=== PATIENT | female | born 1965 | race Caucasian/White ===

== ENCOUNTER 2016-11-03 14:31 | Inpatient (IN) | payer OTHER ==
[~2016-11-03] VITALS: Ht 165.1 cm; Wt 97.3 kg
[2016-11-03] VITALS (8 sets, daily range): BP systolic 118–166; BP diastolic 65–95; PULSE 99–118; RESP 16–22; O2SAT 94–99
[~2016-11-03 14:31] MED LIST: Ketamine 10 mg/mL 20 mL Inj ONE; Propofol 10,000 mCg/mL 20 mL Inj ONE
[2016-11-03 15:37] LABS: BASOPHILS % (AUTO) 0.4 % (0-3); Mean Corpuscular Volume 103.3 fL (81-100)
[2016-11-03 15:39] LABS: EOSINOPHILS % (AUTO) 1.5 % (0-5); MONOCYTES % (AUTO) 3.6 % (4-12); Mean Corpuscular Hemoglobin 35.3 pg (27.0-35.0); NEUTROPHILS % (AUTO) 76.5 % (40-74); Platelet Count 88 bil/L (150-400)
--- NOTE | 2016-11-03 15:55 | ED.REPORT ---
HPI-GI Bleed Date of Service Nov 03, 2016 ED Provider: Tolu Coleman MD Pt is a 50 y/o female w/ a hx of upper GI bleed, Hep C, presenting to the ED c/ o 2 episodes of hematemesis onset 11:30 today. The patient has experienced 2 episodes of delfino red blood hematemesis today. She has a history of severe upper GI blood which required transfer to [facility]. She does use alcohol occasionally and was previously an alcoholic. She took 1 dose of Aleve yesterday for her neuropathy and normally takes Oxycodone for her fibromyalgia. Pt denies abdominal pain, diarrhea, CP, SOB. She has no history of esophageal varices. She does not take anticoagulants. Nursing Notes Stated Complaint: VOMITING BLOOD, POSSIBLE BLEEDING ULCER Chief Complaint: Female Abdominal Pain Nursing Notes Reviewed: Yes Allergies: Coded Allergies: No Known Allergies (Unverified , 11/03/16) General Time Seen by Provider: 15:57 Chief Complaint Chief Complaint: Vomiting blood Bleeding Severity: Moderate Hx Obtained From: Patient Arrived By: Walk-in Onset Occurred: 1 - 4 hours ago Symptom Duration: Since onset Progression Since Onset: Intermittent Severity: Current: No pain currently Severity: Maximum: No pain Recent Healthcare: Previous diagnosis Similar Sx Previous: Yes Past Medical History Past Medical History Anxiety Hernia Hep C Severe upper GI bleed requiring transfer to [facility] Fibromyalgia Peripheral neuropathy Past Surgical History x2 Hysterectomy Hernia repair x2 Family History Father - of pancreatic cancer Smoking History Current Every Day Smoker Social History Alcohol Use: 1-3 per day Drug Use: Denies drug use Other Social History: Ambulatory Status Independent Review of Systems Constitutional: Denies: Fever Respiratory: Denies: Non-productive cough, Shortness of breath Cardiovascular: Denies: Chest pain GI: Reports: Hematemesis, Nausea, Vomiting, Denies: Abdominal pain Complete sys rev & neg: except as marked. Physical Exam Initial Vital Signs Vital Signs (First) Date Time Temp Pulse Resp B/P Pulse Ox O2 Delivery O2 Flow Rate FiO2 11/03/16 14:36 36.5 110 16 150/92 99 Room Air Initial VS: Reviewed, Vital signs abnormal Head / Eyes: Atraumatic, Normocephalic, PERRL ENT: Mucous membranes moist, Conjunctiva normal, No scleral icterus Neck: Supple, Full range of motion Extremities: Vascular intact, Neuro intact, No swelling Skin: Warm, Dry, No cyanosis Neurologic: Alert, Oriented, Nonfocal Psychiatric: Mood/affect normal, Behavior normal, Normal thought content General/Constitutional: Awake, Alert, No acute distress, Cooperative, Not toxic appearing Respiratory / Chest: Breath sounds NL, Breath sounds = bilat, No respiratory distress, No rales, No rhonchi, No wheezing Cardiovascular: Regular rhythm, Heart sounds NL, No gallop, No murmurs, No rubs , Cap refill not delayed Heart Rate / Rhythm: Positive: Tachycardia Abdomen: Atraumatic, Soft, Non-tender, No guarding, No rebound, No distention, No palpable mass Rectum / Perineum: Atraumatic Rectal for Blood: Positive: Blood - occult heme +, Blood, grossly present Interpretation & Diagnostics Interpretation & Diagnostics: US abdomen with doppler: IMPRESSION: #1. Vascular abnormality is not appreciated in this patient with an enlarged liver and echo appearance consistent with fatty infiltration. No splenic enlargement is seen either. Dictated by: Virgilio Calzada M.D. on 11/03/2016 at 17:32 Approved by: Virgilio Calzada M.D. on 11/03/2016 at 17:38 Lab Results Interpretation Result Diagram: 11/03/16 1625 11/03/16 1524 Test 11/03/16 15:24 11/03/16 16:25 White Blood Count 7.2th/mm3 (3.8-10.1) Red Blood Count 3.29mil/mm3 (3.90-5.20) Mean Corpuscular Volume 103.3fL (81-100) Mean Corpuscular Hemoglobin 35.3pg (27.0-35.0) Mean Corpuscular Hemoglobin Concent 34.1% (32.0-37.0) Red Cell Distribution Width 12.5% (12.3-15.4) Platelet Count 88bil/L (150-400) Neutrophils (%) (Auto) 76.5% (40-74) Lymphocytes (%) (Auto) 17.7% (14-46) Monocytes (%) (Auto) 3.6% (4-12) Eosinophils (%) (Auto) 1.5% (0-5) Basophils (%) (Auto) 0.4% (0-3) Prothrombin Time 13.8sec (8.1-12.5) Prothromb Time International Ratio 1.28ratio Sodium Level 141mEq/L (134-144) Potassium Level 4.4mEq/L (3.5-5.2) Chloride Level 105mEq/L (97-108) Carbon Dioxide Level 27mmol/L (18-29) Blood Urea Nitrogen 19mg/dL (6-24) Creatinine 0.61mg/dL (0.57-1.00) Estimat Glomerular Filtration Rate 150mL/min (>59) Glucose Level 116mg/dL (60-99) Calcium Level 8.8mg/dL (8.5-10.1) Magnesium Level 1.5mg/dL (1.6-2.6) Total Bilirubin 1.6mg/dL (0.0-1.2) Aspartate Amino Transf (AST/SGOT) 74U/L (0-50) Alanine Aminotransferase (ALT/SGPT) 39U/L (0-32) Alkaline Phosphatase 128U/L (25-150) Total Protein 7.1g/dL (6.4-8.4) Albumin 3.3g/dL (3.4-5.0) Lipase 17U/L (13-60) Hold Wang Top Tube Received (Received) Alcohols < 10mg/dL (0-10) Hemoglobin 11.3g/dL (12.0-15.6) Hematocrit 32.4% (35.0-46.0) ECG Interpretation ECG Interpretation: Sinus tachycardia rate [address] or T changes Time: 16:25 Interpreted by: ED physician Normal ECG Interpretation: No acute ischemic changes X-Ray Chest Interpretation Chest Xray Interpretation: IMPRESSION: No acute cardiopulmonary disease process. Dictated by: Ingrid Priest MD, PhD on 11/03/2016 at 16:34 Approved by: Ingrid Priest MD, PhD on 11/03/2016 at 16:34 View: Portable, 1 view Interpretation / Wet Read by: Interpret - Radiologist Re-Eval/Medical Decision Med Decision/Clinical Course 50-year-old female history of alcohol abuse, hep C, history of GI bleed presenting with vomiting blood and BRBPR this afternoon. One episode of hematemesis here. Her stool is grossly bloody. Tachycardic to 120s. Blood pressure stable. Her hemoglobin was 11. Patient will be admitted for GI bleed. She was given 1 L normal saline. Type and screen for 2 units PRBCs that we will hold off given possible history of cirrhosis and stable hemoglobin concerning a possible varices. GI recommendations as above. Admitted to hospitalist, taken to endoscopy. Re-Evaluation/Progress : Time of Eval: 16:07 Re-Evaluation/Progress Note: Pt rechecked. Informed pt of need for admission. Pt understands and agrees with plan for admission. All questions addressed. Consultation #1: Referral / Consult Name: Nuzhat Choi MD Call Returned at: 16:05 Racing Secretary And Handicapper: Will see patient, Agrees with eval, Agrees with plan Note: Case discussed with GI. Agrees with plan for admit. Will consult. Recommends PPI, Octreotide, Rocephin, admit to PCC. If INR greater than 1.5 recommends FFP. Obtain abdominal doppler ultrasound. Consultation #2: Referral / Consult Name: Johnathan Noriega MD Consulted With: Hospitalist Call Returned at: 16:45 Racing Secretary And Handicapper: Will see patient, Agrees with eval, Agrees with plan, Accepts admit Counseled Regarding: Diagnosis, Lab results, Need for admission Discharge & Departure Impression: Primary Impression: GI bleed GI bleed type/associated pathology: unspecified gastrointestinal hemorrhage type Qualified Code: K92.2 - Gastrointestinal hemorrhage, unspecified Disposition: ADMITTED TO HOSPITAL Discharge Condition All VS Reviewed: Yes Condition: Stable Referrals: Erica Duggan (PCP) Crit Care Except Billable Proc Time Spent: 30-74 minutes Services Performed: Patient management by me, Time spent at bedside, Reviewing test results, Reviewing imaging, Discussing patient care, Documentation in record Scribe Attestation Portions of this note were transcribed by Guido Pena. I, Dr. Coleman personally performed the history, physical exam and medical decision-making; I reviewed and confirmed the accuracy of the information in the transcribed note. Signed by Karen Heck, 11/03/16 - [id number] copies to: Erica Duggan Ben M MD Nov 03, 2016 15:55 GUIDO PENA Nov 03, 2016 16:04
[2016-11-03 15:56] LABS: Magnesium 1.5 mg/dL (1.6-2.6)
[2016-11-03] MEDS ORDERED: 0.9% Sodium Chloride 1,000 ML IV ONE ×2 (16:04→18:10)
[2016-11-03] MEDS ORDERED: Pantoprazole 4 mg/mL 10 mL Inj IVPUSH ONE (16:05)
[2016-11-03] MEDS ORDERED: cefTRIAXone Inj 2,000 MG in Dextrose 5% Minibag Plus 50 ML IV ONE (16:05)
[2016-11-03] MEDS ORDERED: Octreotide Inj 500 MCG in 0.9% Sodium Chloride 100 ML IV ONE (16:05)
[2016-11-03] MEDS ORDERED: Pantoprazole Inj 80 MG, Pharmacy To Mix 1 EA in 0.9% Sodium Chloride 80 ML IV ONE ×2 (16:05)
[2016-11-03 16:27] LABS: INR 1.28 ratio
--- NOTE | 2016-11-03 16:36 | DRSVH ---
PROCEDURE: X-RAY CHEST ONE VIEW, PORTABLE ([id number]) INDICATIONS: GI bleed TECHNIQUE: One view of the chest was acquired. COMPARISON: [facility], , CHEST 1VW (PORTABLE), 07/30/2008, 8:35. FINDINGS: Surgical changes and devices: None. Lungs and pleura: No pleural effusions or pneumothorax. Lungs are clear. Mediastinum: Mediastinal contours appear normal. Heart size is normal. Bones and chest wall: No suspicious bony lesions. Overlying soft tissues appear unremarkable. IMPRESSION: No acute cardiopulmonary disease process. Dictated by: Ingrid Priest MD, PhD on 11/03/2016 at 16:34 Approved by: Ingrid Priest MD, PhD on 11/03/2016 at 16:34
[2016-11-03] MEDS ORDERED: Ondansetron 2 mg/mL 2 mL Inj IVPUSH PRN ×3 (16:50→18:15)
[2016-11-03] MEDS ORDERED: Alum-Mag Hydrox-Simeth 30 mL Suspension PO PRN ×2 (16:50→17:05)
[2016-11-03] MEDS ORDERED: EPINEPHrine 0.1 mg/mL 10 mL Syringe IV ONE (16:53)
[2016-11-03] MEDS ORDERED: MetoCLOpramide 5 mg/mL 2 mL Inj IVPUSH ONE (17:00)
[2016-11-03] MEDS ORDERED: 0.9% Sodium Chloride 1,000 ML IV SCH (17:02)
[2016-11-03] MEDS ORDERED: Polyethylene Glycol (PEG) 17 Gm Powder PO PRN (17:05)
[2016-11-03] MEDS ORDERED: Magnesium Sulf 2 Gm/50mL Water 2 GM in IV Premix 1 EACH IV ONE (17:15)
--- NOTE | 2016-11-03 17:22 | PCM.HPMED ---
Subjective Date of Service Nov 03, 2016 Primary Provider: Admitting Physician: Johnathan Noriega MD Primary Care Physician: Erica Duggan Attending Physician: Johnathan Noriega MD Chief Complaint: Hematemesis History of Present Illness: 50 year old female with hx of alcohol abuse and Hepatitis C reported cured, and hx of GI bleed second to alcohol abuse with PUD presents to the ED due to acute onset of hematemesis that began around 1300. Pt states that she awoke nauseated this morning and began vomiting blood x2 around 1300, and after presenting to the ED had additional episodes of hematemesis. She endorses light headedness and hematochezia associated with these episodes. She states that she is not using her home Celebrex or Mobic, however, she has been drinking 4 glasses of wine daily and using Aleve BID for the last 3 days. [facility] and prior to her treatment for HepC. She has no history of esophageal varices and her last GI bleed was due to PUD in August 2014. In the ED the patient was tachycardic. Hgb was 11.3. LFT's were elevated suggestive of alcohol use, with hypomagnesemia. GI was consulted and took the patient to endoscopy for EGD. Review of Systems: Complete review of systems reviewed; pertinent positives and negatives per HPI; all other systems reviewed and are negative. Allergies Coded Allergies: No Known Allergies (Unverified , 11/03/16) Home Medications Omeprazole 20mg Oxycodone 5-325mg Aleve prn (2 pills daily a couple days/wk) PMH Anxiety Hernia Hep C Severe upper GI bleed requiring transfer to [facility] Fibromyalgia Peripheral neuropathy Surgical History x2 Hysterectomy Hernia repair x2 Family History Father - of pancreatic cancer Social History Hx Alcohol Use: Yes Hx Substance Use: No Smoking Status: Current Every Day Smoker Living Arrangement: with Family Exam Vital Signs Vital Sign - Last Date Time Temp Pulse Resp B/P Pulse Ox O2 Delivery O2 Flow Rate FiO2 11/03/16 15:59 118 20 141/65 97 Room Air 11/03/16 14:36 36.5 Exam Patient examined after Endoscopy Gen: NAD; resting comfortably HEENT: PERRLA, EOMI, no blood in oral cavity Cardio: RRR; 3/6 systolic murmur; no rubs or gallops Resp: CTA bilaterally with course breath sounds in the RLL Abd: Non-tender, non-distended, soft, positive bowel sounds Ext: Mild non-pitting edema, strength intact throughout Neuro: sensation and CN 2-12 intact throughout Psych: appropriate mood and affect Skin: no rashes Lab and Diagnostics Result Diagram: 11/03/16 1625 11/03/16 1524 X-Rays, CTs and MRIs Chest X-ray IMPRESSION: No acute cardiopulmonary disease process. Dictated by: Ingrid Priest MD, PhD on 11/03/2016 at 16:34 Additional Diagnostics: RUQ Ultrasound #1. Vascular abnormality is not appreciated in this patient with an enlarged liver and echo appearance consistent with fatty infiltration. No splenic enlargement is seen either. Dictated by: Virgilio Calzada M.D. on 11/03/2016 at 17:32 Assessment & Plan 50 year old female with hx of alcohol abuse and Hepatitis C reported cured, and hx of GI bleed second to alcohol abuse with PUD presents to the ED due to acute onset of hematemesis that began around 1300. Acute blood loss anemia second to presumed PUD with macrocytosis: present on admission; ongoing -3 episodes of delfino hematemesis and questionable hematochezia -Hgb appears stable and pt taken to EGD by GI from the ED -Octreotide and Protonix drips running; stopped octreotide affect EGD -Type and cross with transfusion < 7 -Abx given in ED. Will consider pending results of EGD -Pt received 1L NS -Will place on maintenance fluids post-procedure -Trend H/H q8 -Start on clear liquid tomorrow if H/H is stable -Change to Protonix 40mg BID IV tomorrow and d/c drip if stable Possible Cirrhosis second to alcohol abuse and hx hepatitis C; present on admission; ongoing -pt reportedly has not been drinking; patient also taking tylenol and oxycodone at home -PT 1.28, Bili 1.6 and thrombocytopenic -MELD: 11 ; Discriminate function: 7.6 -US RUQ -Follow LFT's, PT, and Bili -Avoid acetaminophen Hypomagnesemia; present on admission; ongoing -replace Fibromyalgia/peripheral neuropathy: present on admission; ongoing - Continue Oxycodone - Hold cyclobenzaprine - Continue pramipexole - Morphine 1-2 Q4 hrs for break through Anxiety: present on exam; stable -Ativan 0.5 Q6 PRN for anxiety Dispo: Pt is being admitted to the PCC on inpatient status due to severity of presentation, duration of treatment, and risk of adverse events Pain Evaluation: Adequate Pain Control VTE Prophylaxis Indicated: Contraindicated Resuscitation Status: CPR: Attempt Resuscitation Attending Statement The patient was seen and examined together with Dr. Rai on 11/03/2016 and I agree with the history, exam and plan as outlined in the note above. . Aleksandar Rai DO Nov 03, 2016 17:22 Johnathan Noriega MD Nov 04, 2016 07:16
--- NOTE | 2016-11-03 17:40 | DRSVH ---
PROCEDURE: US ABDOMEN DOPPLER, LIMITED INDICATIONS: GI bleed, history of cirrhosis or technologist TECHNIQUE: Real-time scanning was performed of the abdominal and retroperitoneal organs, with image documentatio n. Color and pulse Doppler interrogation was also performed of the hepatic and splenic vessels, or o f the lesion of interest. COMPARISON: None. FINDINGS: Liver: There is some increased echogenicity of the liver. It is 19 cm in length consistent with enlar ged liver. Doppler: Main portal vein is patent, with luminal diameter of 10 mm (normal of 13-16 mm). On pulse Doppler interrogation, portal vein flow direction is hepatopetal. Hepatic artery Doppler waveforms d emonstrate normal systolic upstrokes. Hepatic veins are all patent, with expected triphasic Doppler waveforms. Gallbladder: Not evaluated Biliary ducts: No biliary tree dilatation is seen. Spleen: Spleen is normal in size and homogeneous in echotexture. Maximum dimension is approximately 12 cm. Splenic artery and vein are grossly normal. Pancreas: Is not visualized. Kidneys: Are not visualized. Aorta: Is not visualized. Iliacs: Is not visualized. IVC: Is not visualized. Miscellaneous: Generous amount of bowel gas is present throughout the abdomen. IMPRESSION: #1. Vascular abnormality is not appreciated in this patient with an enlarged liver and echo appearanc e consistent with fatty infiltration. No splenic enlargement is seen either. Dictated by: Virgilio Calzada M.D. on 11/03/2016 at 17:32 Approved by: Virgilio Calzada M.D. on 11/03/2016 at 17:38
[2016-11-03] MEDS ORDERED: Lactated Ringer's 1,000 ML IV ONE (17:56)
[2016-11-03] MEDS ORDERED: Lactated Ringer's 1,000 ML IV SCH (18:14)
[2016-11-03] MEDS ORDERED: Lactated Ringer's 500 ML IV PRN (18:14)
--- NOTE | 2016-11-03 18:14 | PCM.HPANE ---
Patient Data Surgeon Admitting Provider:Johnathan Noriega MD Attending Provider:Johnathan Noriega MD Primary Care Physician:Erica Duggan Other Provider: Reason for Visit Gi Bleed Ht/WT & BMI Height (Feet): 5 Height (Inches): 5 Weight (Kilograms): 97.8 Body Mass Index 36 Allergies Coded Allergies: No Known Allergies (Unverified , 11/03/16) Past Anesthesia History Anesthesia History: Denies:: Abnormal Airway, Difficult Intubation Diabetes History Hx Diabetes?: No MRSA MRSA: No Medications Hypertension Medication: No Home Meds Incl Beta Live: No History History of ENT Problems?: No HEENT History: Denies:: Abnormal Airway Difficult Intubation Denture Type: None Teeth Condition: Within Normal Limits Hx of Heart Problems?: No Cardiovascular History: Denies:: AICD Abdominal Aortic Aneurism Atrial Fibrillation Cardiac Surgery Chest Pain Congestive Heart Failure Coronary Artery Disease Edema Heart Murmur Hypertension Irregular Heartbeat Pacemaker Peripheral Vascular Rheumatic Fever Thrombophlebitis Valvular Heart Disease Hx of Respiratory Problem?: Yes Respiratory History: Positive for:: Asthma Denies:: Tuberculosis Hx Neurologic Problems?: Yes (alcoholism) Neurological History: Denies:: Alzheimer's Disease CVA Dementia Dizziness Headaches Multiple Sclerosis Parkinson's Disease Peripheral Neuropathy Seizures TIA Hx of GI Problems?: Yes Gastrointestinal History: Positive for:: Cirrhosis Gastrointestinal Bleeding Hx of Problems?: No Genitourinary History: Denies:: HX of Hemodialysis Kidney Stones Urinary Tract Infection Female Hx: Denies:: Currently Endometriosis Pelvic Inflammatory Problems with Breasts? Skin History: Denies:: History Skin Disorders? Pressure Ulcers Hx Musculoskeletal Problems?: No Musculoskeletal History: Denies:: Back Injury Degenerative Joint Fibromyalgia Joint Replacement Musculoskeletal Trauma Myasthenia Gravis Osteoarthritis Rheumatoid Arthritis Systemic Lupus Hx of Psycho/Social Problems?: Yes Hx Surgeries?: Yes (hysterectomy, 2 hernia surgeries, 2 c sections) Hx Diabetes: No Hx Alcohol Use: YesHx Substance Use: No Smoking Status: Current Every Day Smoker Have You Smoked inLast 12 mo: Yes Stop/Bang Treated for Sleep Apnea?: No Do You Have a CPAP Machine?: No Risk Assessment Category Category 1A: Patient has history of documented sleep apnea, and HAS NOT received any narcotic, sedative or anesthesia administration during this stay. Category 1B: Patient has history of documented sleep apnea, and HAS received any narcotic , sedative or anesthesia administration during this stay Category 2: Patient has SUSPECTED Obstructive Sleep Apnea, and HAS received any narcotic , sedative or anesthesia administration during this stay. Category 3: Patient has SUSPECTED Obstructive Sleep Apnea and HAS NOT received narcotic, sedative or anesthesia administration during this stay. Category 4: Outpatient in Procedural Areas with known sleep apnea or who screen positive for High Risk via the STOP/BANG questionnaire. Exam Exam Vital Signs Vital Signs Date Time Temp Pulse Resp B/P Pulse Ox O2 Delivery O2 Flow Rate FiO2 11/03/16 17:25 107 22 138/79 97 Room Air 11/03/16 15:59 118 20 141/65 97 Room Air 11/03/16 14:36 36.5 110 16 150/92 99 Room Air General Appearance: Alert, Oriented X3, Cooperative, No Acute Distress HEENT/AIRWAY: MP 2 Lungs: Clear to Auscultation, Normal Air Movement Heart: Exam Unremarkable, Regular Rate/Rhythm, No Murmurs/Rubs/Gallops Meds/Labs/Diagnostics Admission Meds Current Medications Pantoprazole (Protonix Inj) 80 mg STAT ONCE IVPUSH Last administered on 16:48; Start 11/03/16 at 16:05; Stop 11/03/16 at 16:09; Status DC Octreotide Acetate 50 mcg 50 mcg ONCE ONCE IVPUSH Last administered on 16:54; Start 11/03/16 at 16:05; Stop 11/03/16 at 16:10; Status DC Sodium Chloride (Normal Saline) 1,000 ml @ 0 mls/hr Q0M ONCE IV Last administered on 11/03/16 16:53; Start 11/03/16 at 16:04; Stop 11/03/16 at 16:09 ; Status DC Metoclopramide HCl 10 mg 10 mg ONCE ONCE IVPUSH Last administered on 17:10; Start 11/03/16 at 17:00; Stop 11/03/16 at 17:01; Status DC Lactated Ringer's (Lr) 1,000 ml @ ud STK-MED ONCE IV Last administered on 11/03 17:56; Start 11/03/16 at 17:56; Stop 11/03/16 at 17:57; Status DC Labs Test 11/03/16 15:24 11/03/16 16:25 White Blood Count 7.2th/mm3 (3.8-10.1) Red Blood Count 3.29mil/mm3 (3.90-5.20) Mean Corpuscular Volume 103.3fL (81-100) Mean Corpuscular Hemoglobin 35.3pg (27.0-35.0) Mean Corpuscular Hemoglobin Concent 34.1% (32.0-37.0) Red Cell Distribution Width 12.5% (12.3-15.4) Platelet Count 88bil/L (150-400) Neutrophils (%) (Auto) 76.5% (40-74) Lymphocytes (%) (Auto) 17.7% (14-46) Monocytes (%) (Auto) 3.6% (4-12) Eosinophils (%) (Auto) 1.5% (0-5) Basophils (%) (Auto) 0.4% (0-3) Prothrombin Time 13.8sec (8.1-12.5) Prothromb Time International Ratio 1.28ratio Sodium Level 141mEq/L (134-144) Potassium Level 4.4mEq/L (3.5-5.2) Chloride Level 105mEq/L (97-108) Carbon Dioxide Level 27mmol/L (18-29) Blood Urea Nitrogen 19mg/dL (6-24) Creatinine 0.61mg/dL (0.57-1.00) Estimat Glomerular Filtration Rate 150mL/min (>59) Glucose Level 116mg/dL (60-99) Calcium Level 8.8mg/dL (8.5-10.1) Magnesium Level 1.5mg/dL (1.6-2.6) Total Bilirubin 1.6mg/dL (0.0-1.2) Aspartate Amino Transf (AST/SGOT) 74U/L (0-50) Alanine Aminotransferase (ALT/SGPT) 39U/L (0-32) Alkaline Phosphatase 128U/L (25-150) Total Protein 7.1g/dL (6.4-8.4) Albumin 3.3g/dL (3.4-5.0) Lipase 17U/L (13-60) Hold Wang Top Tube Received (Received) Alcohols < 10mg/dL (0-10) Hemoglobin 11.3g/dL (12.0-15.6) Hematocrit 32.4% (35.0-46.0) Plan Impression Patient chart reviewed, patient interviewed and anesthestic plan with risks, benefits, and alternatives discussed, and informed consent obtained. ASA Physical Status: ASA3 Severe Disease (cirrhosis, gi bleed) Anesthetic Plan: MAC Bene/Risks/Altern/Consents: Yes HP Complete Prior to Induction: Yes Rik May MD Nov 03, 2016 18:14
[2016-11-03] MEDS ORDERED: Dexamethasone 4 mg/mL Inj IVPUSH PRN (18:15)
[2016-11-03] MEDS ORDERED: Phenylephrine 10,000 mCg/mL Inj IVPUSH PRN (18:15)
[2016-11-03] MEDS ORDERED: MetoCLOpramide 5 mg/mL 2 mL Inj IVPUSH PRN (18:15)
[2016-11-03] MEDS ORDERED: EPHEDrine Sulfate 50 mg/mL Inj IVPUSH PRN (18:15)
--- NOTE | 2016-11-03 18:16 | PCM.ANEP1 ---
Post Anesthesia PACU Phase 1 Assessment Vital Signs Vital Signs Date Time Temp Pulse Resp B/P Pulse Ox O2 Delivery O2 Flow Rate FiO2 11/03/16 17:25 107 22 138/79 97 Room Air 11/03/16 15:59 118 20 141/65 97 Room Air 11/03/16 14:36 36.5 110 16 150/92 99 Room Air Anesthetic Administered: MAC Level of Alertness: Sleepy, easy to arouse VALIENTE's with Equal Strength: Yes Pain: No Nausea or Vomiting: No CV Function & Hydration Stable: Yes Airway Device: none Oxygen Delivery: Nasal Cannula Lungs: Clear to Auscultation, Normal Air Movement Dermatome Level: Full Sensation PACU Phase 2 Assessment Complications: No Follow up Care: No Patient Instructions Provided: N/A Rik May MD Nov 03, 2016 18:16
--- NOTE | 2016-11-03 18:36 | NUR ---
Transfer Pt arrived on PCC room # 2009 at 1830. Report from SANTIAGO Reddy in ENDO. Pt is alert and oriented, groggy from propofol given in ENDO. Tele place. Vitals stable. RA at 99% No c/o pain. NPO, NS started. at bedside. Waiting on orders to be placed. No admit completed r/t change of shift.
[2016-11-03] MEDS: 0.9% Sodium Chloride 1,000 ML IV SCH (19:25)
[2016-11-03] MEDS ORDERED: CELE50CA PO (19:55)
[2016-11-03] MEDS ORDERED: Octreotide Inj 500 MCG in 0.9% Sodium Chloride 100 ML IV SCH (20:00)
[2016-11-03] MEDS ORDERED: cefTRIAXone 2,000 mg/D5W 50 mL IV Minibag Plus IV ONE ×2 (20:10)
[2016-11-03] MEDS ORDERED: Pantoprazole Inj 80 MG in 0.9% Sodium Chloride 80 ML IV SCH (20:10)
[2016-11-03 20:33] LABS: APPEARANCE,URINE HAZY (CLEAR,HAZY); COLOR,URINE YELLOW (YELLOW); OCCULT BLOOD,URINE TRACE (NEGATIVE); PH,URINE 7.5 (5.0-8.0); UROBILINOGEN,URINE NORMAL (NORMAL)
[2016-11-03] MEDS: Pantoprazole Inj 80 MG, Pharmacy To Mix 1 EA in 0.9% Sodium Chloride 80 ML IV SCH ×2 (20:38)
--- NOTE | 2016-11-03 21:08 | CONS ---
[address] [address] CONSULTATION REPORT PATIENT: KEVIN PHILLIPS : 1965 MR#: [id number] ADMIT: 11/03/2016 JOB ID: [id number] DATE OF SERVICE: 11/03/2016 REASON FOR CONSULTATION: Hematemesis. PHYSICIAN REQUESTING CONSULTATION: Dr. Tolu Coleman. HISTORY OF PRESENTING ILLNESS: The patient is a 50-year-old woman who has a history of alcohol abuse dating back since her 20s and episodically has been abstinent. However, more recently, she has been drinking approximately 4-5 glasses of wine daily. She has also been taking ibuprofen and Excedrin for chronic lower back pain. She has a history of an upper GI bleed for which she underwent upper endoscopy approximately two years ago at [facility] and at that time was found to have peptic ulcer disease, and she was advised not to take any further NSAIDs. Also, at that time, the patient was diagnosed with chronic hepatitis C and subsequently underwent treatment at the [facility] and states that she has been cured of hepatitis C. She does have a history of cirrhosis. She reports that she was in her usual state of health up until earlier today when she started feeling nausea after returning from the store. This was then followed by hematemesis, two episodes, one at home and one in the emergency department and also reports of bright red blood per rectum. She denies any abdominal pain. She denies any fevers, chills, sweats. Upon arrival to the emergency department, she was slightly tachycardic at 110, however, the remainder her vital signs were stable. INITIAL LABS: Her initial hemoglobin was 11.6, and then repeat approximately an hour later was stable at 11.3 with a hematocrit of 32.4. Her LFTs did show a total bili of 1.6, AST of 74, ALT of 39, alkaline phosphatase of 128, albumin of 3.3. She did have an ultrasound of the abdomen done with Doppler which showed that the liver was enlarged and had increased in echogenicity. The spleen appeared unremarkable. No obvious ascites appreciated. No evidence of portal vein thrombosis. PAST MEDICAL HISTORY: Significant for chronic hepatitis C which has been treated, history of peptic ulcer disease, fibromyalgia, anxiety, alcohol abuse and peripheral neuropathy. PAST SURGICAL HISTORY: Includes , hysterectomy and two hernia repairs. FAMILY HISTORY: Significant for pancreatic cancer in her father. SOCIAL HISTORY: She does drink alcohol daily, and she does smoke cigarettes daily. She lives with her . HOME MEDICATIONS: Include omeprazole 20 mg, oxycodone 5/325, Aleve two tablets daily as well as Excedrin. ALLERGIES: She has no known drug allergies. REVIEW OF SYSTEMS: Her 10 point review of systems is otherwise unremarkable. HOSPITAL MEDICATIONS: Hospital medications include ceftriaxone, octreotide, pantoprazole, Ativan p.r.n., morphine p.r.n., Maalox p.r.n., senna p.r.n., MiraLAX p.r.n. and acetaminophen p.r.n. PHYSICAL EXAM: She is afebrile, her pulse was 118, her blood pressure is 141/65, respiratory rate is 20, O2 saturation is 97% on room air. Generally, she is a cdjxwy-rseo-[id number] woman who is in no apparent distress who is oriented to person, place, and time and answers questions appropriately. HEENT: No pallor. No icterus. Oropharynx is clear. Chest exam: Clear to auscultation bilaterally. Cardiovascular exam: S1, S2 heard. Abdomen: Obese, soft, nontender, nondistended, did not appreciate any hepatosplenomegaly. Extremities with trace edema. LABORATORY DATA: Her laboratory data includes a white blood cell count of 7.2, hemoglobin of 11.3, hematocrit 32.4, her platelet count was 88, her neutrophil count was 76.5, MCV was 103.3, PT was 13.8, INR is 1.28. Her BMP was normal except for glucose which was mildly elevated at 116. LFTs as described above. Lipase was 17. Alcohol level was less than 10. Hepatitis serologies have been sent and are pending. Ultrasound of the abdomen as described above. ASSESSMENT AND PLAN: 1. A 50-year-old woman with a history of chronic hepatitis C that has been treated and alcohol abuse who has a known cirrhosis presenting with hematemesis and rectal bleeding. I suspect we may be dealing with variceal bleeding versus peptic ulcer disease and therefore had recommended that she be started on octreotide as well as a Protonix drip. In addition, with her history of cirrhosis, agree with empiric antibiotics that have been started. I would recommend continuing to follow her H and H closely and transfuse blood products as needed. 2. She has two large-bore IVs and she is typed and screened. Would recommend keeping her hemoglobin between 8-10 as to not increase portal pressures. Will plan for urgent endoscopy. Risks and benefits of endoscopy were discussed with the patient and she is agreeable to proceed. 3. Alcohol abuse. Would monitor for withdrawal. 4. Elevated liver function test. I suspect this is secondary to alcohol abuse. Would continue to monitor LFTs and PT/INR. 5. Avoid any hepatotoxic medications. Additionally, would try to minimize narcotic use and sedatives if able. 6. Thrombocytopenia. I suspect this is likely related to portal hypertension. If she should have bleeding and her platelet count should drop below 50, would then recommend transfusing platelets if needed. Will plan for urgent endoscopy. Thank you for allowing me to participate in this patient's care. If you have any further questions, please do no hesitate to contact me.
[2016-11-03] MEDS ORDERED: OXYC5SOL11 PO (21:14)
[2016-11-03] MEDS ORDERED: ALPR0.5T8 PO (21:14)
[2016-11-03] MEDS ORDERED: CYCL5TAB PO (21:21)
[2016-11-03] MEDS ORDERED: PRAM0.252 PO (21:21)
[2016-11-03] MEDS ORDERED: ZLP5T PO (21:21)
[2016-11-03] MEDS ORDERED: OXYC5TAB72 PO (21:21)
[2016-11-03] MEDS ORDERED: Cyclobenzaprine PO (21:23)
--- NOTE | 2016-11-03 22:30 | ENDO ---
[address] [address] ENDOSCOPY PROCEDURE PATIENT: KEVIN PHILLIPS : 1965 MR#: [id number] ADMIT: 11/03/2016 JOB ID: [id number] DATE OF SERVICE: 11/03/2016 PROCEDURE: Esophagogastroduodenoscopy. INDICATION: Hematemesis. Please see Dr. May's anesthesia report for details regarding ASA classification, Mallampati score, and medications. INSTRUMENT USED: GIF H 180 J. PROCEDURE DETAILS: After informed consent was obtained, the patient was brought into the GI suite, where she was placed on oxygen via nasal cannula and monitored with continuous pulse oximeter, telemetry, and blood pressure monitoring. A time-out was performed and then she was placed in a left lateral decubitus position and medications were administered for sedation. A bite block was placed. The standard EGD scope was inserted through the bite block and advanced under direct visualization to the second portion of the duodenum without difficulty. FINDINGS: 1. There was old blood seen in the examined portions of the duodenum which we were able to clear with irrigation and suctioning. Following irrigation, we saw no accumulation of any fresh blood or old blood. The colonoscope was then withdrawn back into the antrum. At the 9 o'clock position in the antrum, there was a clean-based 2-3 mm ulcer. This was not actively bleeding. 2. Retroflexed views in the gastric body revealed old blood in the body of the stomach, fundus. At the cardia, there was an adherent clot. Next, we irrigated the body and antrum of the stomach and were able to clear the majority of the old blood. There was no accumulation of fresh blood. 3. Next, we directed our attention to the adherent clot at the cardia. We were able to visualize this more clearly as we withdrew the scope into the esophagus. Just below the GE junction at 37 cm, there was an adherent clot. The tissue surrounding the clot also appeared to be quite denuded and slightly ulcerated. I suctioned the clot off. Following that, there was oozing of blood. At this point, I elected to use the injection needle and inject 3 mL of epinephrine into the ulcerated area and bleeding area. At that time. 4. I then elected to place two hemoclips to approximate the ulcerated area. Also, within the ulcerated area there appeared to be what looked like a visible vessel that was approximated when the ulcerated area was approximated as well. Following this, copious amounts of irrigation was performed. No further bleeding was seen. The EGD scope was then withdrawn above the GE junction where we were able to examine the esophagus. There was evidence of small esophageal varices that flattened out with insufflation. There was no stigmata of recent bleed from the three columns of small varices that we visualized. The remainder of the esophagus appeared otherwise unremarkable. IMPRESSION: Ulcerated mucosa with visible vessel just below the gastroesophageal junction at 37 cm. The area was treated with a combination of epinephrine and hemoclip placement. RECOMMENDATION: 1. Continue n.p.o. 2. Continue PPI drip. 3. Discontinue octreotide drip. 4. Continue to follow H and H closely. Should the patient have any active bleeding, please contact me directly. COMPLICATIONS: None. ESTIMATED BLOOD LOSS: Less than 10 mL.
[2016-11-04] VITALS (7 sets, daily range): BP systolic 105–158; BP diastolic 46–78; PULSE 77–98; RESP 16–22; O2SAT 96–99
[2016-11-04 03:04] LABS: BASOPHILS % (AUTO) 0.4 % (0-3); EOSINOPHILS % (AUTO) 2.8 % (0-5); Mean Corpuscular Hemoglobin 35.6 pg (27.0-35.0); Mean Corpuscular Volume 104.9 fL (81-100); NEUTROPHILS % (AUTO) 54.5 % (40-74); Platelet Count 62 bil/L (150-400)
[2016-11-04 03:10] LABS: Hepatitis A Antibody IgM Negative (Negative); Hepatitis B Core Antibody IgM Negative (Negative)
[2016-11-04 04:21] LABS: Magnesium 1.7 mg/dL (1.6-2.6); Phosphorus 2.7 mg/dL (2.5-4.9)
[2016-11-04] MEDS: 0.9% Sodium Chloride 1,000 ML IV SCH (04:23)
[2016-11-04] MEDS: Pantoprazole Inj 80 MG, Pharmacy To Mix 1 EA in 0.9% Sodium Chloride 80 ML IV SCH ×4 (05:21→16:07)
--- NOTE | 2016-11-04 06:28 | NUR ---
GI: Pt denies any nausea vomiting. NS and Protonix gtt infusing as ordered. Pt remains NPO. Pt did have one moderate sized maroon/ brown, foul smelling stool. H/H stable. PRN Morphine given got leg pain/ cramping with intermittent relief. PRN Ativan given for anxiety with good results. pt able to sleep. care ongoing,.
[2016-11-04] MEDS ORDERED: CYCL5TAB PO (08:07)
[2016-11-04] MEDS: Lactated Ringer's 1,000 ML IV SCH ×2 (08:20→17:32)
[2016-11-04] MEDS ORDERED: FUR20 PO (08:40)
[2016-11-04] MEDS ORDERED: MULT1CAP33 PO (08:40)
[2016-11-04] MEDS ORDERED: OXYC10TA8 PO (08:40)
[2016-11-04] MEDS ORDERED: PRAM0.256 PO (08:40)
[2016-11-04] MEDS ORDERED: CELE-67 PO (08:40)
[2016-11-04] MEDS ORDERED: ZOLP5TAB6 PO (08:40)
[2016-11-04] MEDS ORDERED: CALC600T12 PO (08:43)
[2016-11-04] MEDS ORDERED: CYAN500 PO (08:43)
[2016-11-04] MEDS ORDERED: CHOL10008 PO (08:43)
[2016-11-04] MEDS ORDERED: MAGN250T29 PO (08:43)
--- NOTE | 2016-11-04 08:49 | NUR ---
Med Rec Completed and corrected Med Rec with patient by using Ext Med Hx. Paged Hospitalist on R2 to notify him that Med Rec has been completed.
--- NOTE | 2016-11-04 10:20 | NUR ---
Pain/anxiety Patient stated having leg cramps and lower extremity pain 4-5/10. medicated with morphine 2mg IV x1 with moderate pain relive. Patient was pacing in room around her bed and appeared anxious- ativan 0.5mg IV x1 was given-patient was able to relax and to rest. Consulted with attending resident regarding resuming home medications continue assessment.
[2016-11-04] MEDS ORDERED: OXYCODONE 20 MG PO SCH (13:50)
--- NOTE | 2016-11-04 17:03 | PCM.PNMED ---
Subjective Date of Service Nov 04, 2016 Subjective Pt doing well this am. Up and walking about. No complaints. EGD yesterday revealed ulcer under the cardiac sphincter that was injected and cauterized. Exam Vital Signs Vital Sign - Last Date Time Temp Pulse Resp B/P Pulse Ox O2 Delivery O2 Flow Rate FiO2 11/04/16 16:08 37.0 85 19 105/46 96 Room Air Intake and Output 11/03/16 11/03/16 11/04/16 Cumulative From/Thru 14:59 22:59 06:59 11/03/16 14:36 - 11/04/16 06:00 Intake Total 1899 ml 1260 ml 3159 ml Output Total 1100 ml 1100 ml Balance 1899 ml 160 ml 2059 ml Intake Oral 0 ml 0 ml IV Total 1899 ml 1260 ml 3159 ml Output Urine Total 600 ml 600 ml Urine/Stool Mix 500 ml 500 ml # Voids 2 2 Exam Gen: NAD; resting comfortably Cardio: RRR; 3/6 systolic murmur; no rubs or gallops Resp: CTA bilaterally Abd: Non-tender, non-distended, soft, positive bowel sounds Ext: Mild non-pitting edema, strength intact throughout Neuro: grossly intact psych: appropriate mood and affect IVs and Medications Medications Reviewed: Medications were reviewed in detail Lab and Diagnostics Result Diagram: 11/04/16 1610 11/04/16 0236 X-Rays, CTs and MRIs Chest X-ray IMPRESSION: No acute cardiopulmonary disease process. Dictated by: Ingrid Priest MD, PhD on 11/03/2016 at 16:34 Additional Diagnostics RUQ Ultrasound #1. Vascular abnormality is not appreciated in this patient with an enlarged liver and echo appearance consistent with fatty infiltration. No splenic enlargement is seen either. Dictated by: Virgilio Calzada M.D. on 11/03/2016 at 17:32 Assessment & Plan 50 year old female with hx of alcohol abuse and Hepatitis C reported cured, and hx of GI bleed second to alcohol abuse with PUD presents to the ED due to acute onset of hematemesis that began around 1300. Acute blood loss anemia second to presumed PUD with macrocytosis: present on admission; ongoing -3 episodes of delfino hematemesis and questionable hematochezia -Hgb appears stable and pt taken to EGD by GI from the ED -Stopped octreotide after EGD -Type and cross with transfusion for Hgb < 7 -Stopped abx -Continue to rend H/H q8 -Start on clear liquid -Continue protonix to IV Heart Murmur -Patient has a grade 3/6 systolic murmur -Echo ordered today results pending Possible Cirrhosis second to alcohol abuse and hx hepatitis C; present on admission; ongoing -pt reportedly has not been drinking; patient also taking tylenol and oxycodone at home -PT 1.28, Bili 1.6 and thrombocytopenic -MELD: 11 ; Discriminate function: 7.6 -US RUQ -Follow LFT's, PT, and Bili -Avoid acetaminophen -Start patient on vitamins and thiamine Hypomagnesemia; present on admission; currently stable -Continue to monitor and treat as medically appropriate Fibromyalgia/peripheral neuropathy: present on admission; ongoing - Continue Oxycodone - Hold cyclobenzaprine - Continue pramipexole - Morphine 1-2 Q4 hrs for break through -Extensive counseling about appropriate exercises for fibromyalgia such as Pilates -Extensive counseling about insulin medications in high doses causing the patient's GI bleed -Patient instructed to use Arnicare gel for pain relief Anxiety: present on exam; stable -Ativan 0.5 Q6 PRN for anxiety Dispo: Likely discharge tomorrow pending stability of H/H Resuscitation Status: CPR: Attempt Resuscitation Time spent 40 minutes Attending Statement The patient was seen and examined together with Dr. Rai on 11/04/16 and I have added additional information to the note above. Aleksandar Rai DO Nov 04, 2016 17:03 Alyssa Adams DO Nov 04, 2016 18:47
--- NOTE | 2016-11-04 22:40 | PCM.PNMED ---
Subjective Date of Service Nov 04, 2016 Subjective patient reports multiple addie stools this AM, none since noon no further nausea or vomiting. no abdominal pain. tolerating clears Exam Vital Signs Vital Sign - Last Date Time Temp Pulse Resp B/P Pulse Ox O2 Delivery O2 Flow Rate FiO2 11/04/16 20:09 37.0 85 19 122/54 98 Room Air Intake and Output 11/03/16 11/03/16 11/04/16 Cumulative From/Thru 15:00 23:00 07:00 11/03/16 14:36 - 11/04/16 06:00 Intake Total 1899 ml 1260 ml 3159 ml Output Total 1100 ml 1100 ml Balance 1899 ml 160 ml 2059 ml Intake Oral 0 ml 0 ml IV Total 1899 ml 1260 ml 3159 ml Output Urine Total 600 ml 600 ml Urine/Stool Mix 500 ml 500 ml # Voids 2 2 Exam Generally, she is a twppna-mbyo-sawnaxdnf woman who is in no apparent distress who is oriented to person, place, and time and answers questions appropriately. HEENT: No pallor. No icterus. Oropharynx is clear. Chest exam: Clear to auscultation bilaterally. Cardiovascular exam: S1, S2 heard. Abdomen: Obese, soft, nontender, nondistended, did not appreciate any hepatosplenomegaly. Extremities with trace edema. Lab and Diagnostics Result Diagram: 11/04/16 1610 11/04/16 0236 X-Rays, CTs and MRIs Chest X-ray IMPRESSION: No acute cardiopulmonary disease process. Dictated by: Ingrid Priest MD, PhD on 11/03/2016 at 16:34 Additional Diagnostics RUQ Ultrasound #1. Vascular abnormality is not appreciated in this patient with an enlarged liver and echo appearance consistent with fatty infiltration. No splenic enlargement is seen either. Dictated by: Virgilio Calzada M.D. on 11/03/2016 at 17:32 Assessment & Plan Ulcer just below GEJ -H/H down a bit today, had melena this morning none since noon -recommend another day of clear liquid diet and continuing PPI drip if H/H stable tomorrow and no further melena then could advance diet and discharge. From Gi standpoint antibiotics no longer needed. Repeat EGD in 6 weeks Cirrhosis secondary to Chronic Hep C and ETOH abuse -Q6 month imaging of the liver Abnormal LFT's -secondary to alcohol abuse, LFT's improved -ETOH cessation encouraged ETOH abuse Resuscitation Status: CPR: Attempt Resuscitation Nuzhat Choi MD Nov 04, 2016 22:40
[2016-11-05] MEDS: Pantoprazole Inj 80 MG, Pharmacy To Mix 1 EA in 0.9% Sodium Chloride 80 ML IV SCH ×4 (02:33→11:49)
[2016-11-05] MEDS: Lactated Ringer's 1,000 ML IV SCH (02:48)
--- NOTE | 2016-11-05 03:40 | NUR ---
LEG PAIN Pt c/o chronic leg pain, received 20 mg oxycodone and 0.5 mg Mirapex for restless legs. Pt A&O, Jonah VALIENTE. in room, SR PERLA 70-80's. No other issues noted at this time.
[2016-11-05 04:15] VITALS: BP 104/56; PULSE 82; RESP 18; O2SAT 94
[2016-11-05 05:06] VITALS: PULSE 92
[2016-11-05 07:21] VITALS: BP 133/66; PULSE 86; RESP 17; O2SAT 99
--- NOTE | 2016-11-05 08:59 | DRSVH ---
[facility] [address] [place] [address] Echocardiogram Report Name: KEVIN PHILLIPS DStudy Date: 0 11/04/2016 Height: 65 in Hospital Exam Location: [facility] Weight: 212 lb Gender: Female BSA: 2.0 m2 : 1965 Age: 50 yrs BP: 158/78 mmHg Reason For Study: MURMUR Ordering Physician: HOSPITALIST PILLOerformed By: Lucas Landa Referring Physician: NAVEEN APONTE Interpretation Summary The left ventricle is normal in size. There is mild concentric left ventricular hypertrophy. Proximal septal thickening is noted. The echo findings are consistent with mild dynamic left ventricular outflow tract obstruction (Likely cause of flow murmur). The left ventricle is hyperdynamic. Left ventricular ejection fraction is estimated to be 70 +/- 5%. The right ventricle is grossly normal size. The right ventricular systolic function is normal. No significant valvular pathology seen. Procedure: A two-dimensional transthoracic echocardiogram with color flow and Doppler was performed. The study quality was technically adequate. There is no prior echocardiogram noted for this patient. The patient was in normal sinus rhythm during the exam. Left Ventricle: The left ventricle is normal in size. There is mild concentric left ventricular hypertrophy. The LVOT velocity is 1.5 m/s. The left ventricular outflow velocity with valsalva is 2.8. Proximal septal thickening is noted. The echo findings are consistent with mild dynamic left ventricular outflow tract obstruction. There is no thrombus. The left ventricle is hyperdynamic. Left ventricular ejection fraction is estimated to be 70 +/- 5%. Left ventricular wall motion is normal. Spectral Doppler of the mitral valve is reversed, with an E/A wave ratio < 1.0. Right Ventricle: The right ventricle is grossly normal size. The right ventricular systolic function is normal. Atria: The left atrium is moderately dilated. Right atrial size is normal. The interatrial septum is intact with no evidence for an atrial septal defect. Mitral Valve: The mitral valve leaflets appear mildly thickened, but open well. There is mild mitral annular calcification. The mitral valve chordae are thickened and/or calcified. There is trace mitral regurgitation. Aortic Valve: The aortic valve is grossly normal. The aortic valve is not well visualized. The aortic valve is mildly calcified. The aortic valve opens well. There is no aortic valve stenosis. Increased AV velocity due to hyperdynamic LV. No aortic regurgitation is present. Tricuspid Valve: The tricuspid valve is not well visualized, but is grossly normal. Pulmonary artery pressures cannot be estimated because of the lack of a measurable TR jet velocity. There is trace tricuspid regurgitation. Pulmonic Valve: The pulmonic valve is not well visualized. There is no pulmonic valvular regurgitation. Great Vessels: The aortic root is normal size. There is aortic root sclerosis/calcification. The dimensions of the ascending aorta are normal. The pulmonary is not well visualized. The inferior vena cava was not well visualized. Pericardium/ Pleura There is no pericardial effusion. There is no pleural effusion. MMode/2D Measurements & Calculations LVIDd: 4.3 cm RA long axis LVOT diam: 2.0 cm LVIDs: 2.6 cm LA A2 area: 22.4 cm Ao root diam FS: 39.3 % LA A4 area: 25.5 cm RA area IVSd: 1.2 cm LA length (vol) asc Aorta Diam LVPWd: 1.1 cm : 14.7 cm LA vol: 89.5 ml RA vol Ao Arch Diam (Prox LA vol index : 40.7 ml Trans): 2.7 cm RA : 44.1 ml/m2 : 20.1 mm2 LV milan. diameter/BSA LV sys. diameter/BSA (cm/m^2): 2.1 (cm/m^2): 1.3 Doppler Measurements & Calculations Ao V2 max MV E max darin MV E/A: 0.90 PA V2 max : 228.6 cm/sec : 96.7 cm/sec Med Peak E' Darin : 139.0 cm/sec Ao max P.9 mmHg MV A max darin PA mean PG Ao mean P.4 mmHg : 107.1 cm/sec E/E' med: 19.6 : 4.1 mmHg LVOT Max Darin MVA(VTI): 2.6 cm2 Lat Peak E' Darin : 147.5 cm/sec JOSE(I,D): 2.4 cm E/E' lat: 14.4 sev ratio: 0.80 E/e' average MV V2 mean Ao V2 mean LV V1 max PG PA V2 mean : 85.6 cm/sec : 153.0 cm/sec : 97.4 cm/sec MV mean P.2 mmHg Ao V2 VTI: 39.7 cmLV V1 VTI: 31.6 cm MV V2 VTI: 37.0 cm JSOE(V,D): 1.9 cm2 MV dec time: 0.22 sec JOSE indexed to BSA (cm^2/m^2): 1.2 Reading Physician:NICHOLAS
[2016-11-05 10:10] VITALS: PULSE 92
[2016-11-05 10:33] VITALS: PULSE 83
--- NOTE | 2016-11-05 11:53 | NUR ---
Social Work: Screen/Chemical Dependency Assessment D: Per EMR review, pt is a 50 year old female admitted for GI Bleed. Pt is [facility]. PCP is JESSY Turner. NOK is spouse, Leroy Ruiz. Advanced directives info provided. Readmit score is low, 0/8. Pt discussed in am rounds. Pt will be medically stable for discharge home today. Pt has been ambulating I during admission. Pt requires CD assessment for resources. Order received. PRISON PSYCHIATRIST met with pt and spouse at bedside. Pt confirms ETOH use of approximately 4-5 glasses of wine daily. Pt states that her drinking has been problematic for a long time but she has never sought treatment and/or counseling. Pt states her brother has a history of ETOH use and did AA and found sobriety. Pt is interested in AA resources and attending an all women's group. Pt states she found a closed group in [place] that she is going to try to get in to. Pt would like to meet with the CDP onsite from [facility]. KETTY signed. CDP was able to see the patient today. The pt was provided with community resources along with AA schedule. Spouse provided with ALANON schedule as well. Pt declined full CD assessment. A: Pt who is I at baseline. P: Anticipate pt to discharge home today via POV; pt provided with CD community resources. SHAVON Smith
[2016-11-05] MEDS ORDERED: PANT40TA2 PO (12:05)
[2016-11-05] MEDS ORDERED: METO25TA6 PO (12:05)
--- NOTE | 2016-11-05 13:23 | PCM.DIMED ---
Alex Phipps DO 11/05/16 1148: Discharge Instructions Date of Service Nov 05, 2016 Dates of Hospitalization Nov 03, 2016 at 16:52 Discharge Diagnosis Discharge Diagnosis Acute blood loss anemia second to presumed PUD with macrocytosis Heart Murmur Possible Cirrhosis second to alcohol abuse and hx hepatitis C Hypomagnesemia Fibromyalgia/peripheral neuropathy: present on admission; ongoing Anxiety Diastolic heart failure Diet Discharge Diet: Low fat, Low Sodium Activity Discharge Activity: Limited until seen by PCP Call your provider Call your provider for: Fever or Chills, Shortness of breath, Bleeding, Chest pain, Vomitting, Excessive diarrhea, Weakness (unilateral) Patient Instructions Patient Instructions You were treated in the hospital because you were throwing up blood. While at the hospital we used a camera to look at your stomach and found a bleeding spot which was fixed by our stomach doctor. As you stated you are doing much better and we are going to discharge you. We also found out that your heart has trouble relaxing at times. We have placed you on a couple of medications to help with these problems. You need to avoid NSAID medications. These include Aleve and Advil (ibuprofen) . You should also stop drinking alcohol because this makes the problem worse. You will go home on two new medications: 1) Metoprolol. This is for your heart. Take per instructions. 2)Protonix. This is to decrease the acid in your stomach. Take per instructions. You will need a followup appointment with gastroenterology in one month. In about six weeks they will use a camera to look into your stomach again. In six months you will need another image of your liver. You will also need a followup appointment with your regular doctor (primary care provider) in 3-7 days. Alyssa Adams DO 11/05/16 1528: Discharge Instructions Attending's Statement The patient was seen and examined together with Dr. Phipps on 11/05/16 and I agree with the history, exam and plan as outlined in the note above. Alex Phipps DO Nov 05, 2016 11:48 Alyssa Adams DO Nov 05, 2016 15:28
--- NOTE | 2016-11-05 14:46 | PCM.DC.MED ---
Discharge Summary Date of Service Nov 05, 2016 Dates of Hospitalization Date of Hospital Admission Nov 03, 2016 at 16:52 Date of Discharge: Nov 05, 2016 Providers: Admitting Physician: Johnathan Noriega MD Primary Care Physician: Erica Duggan Attending Physician: Johnathan Noriega MD Diagnosis at Time of Discharge Diagnosis at Time of Discharge Acute blood loss anemia second to presumed PUD with macrocytosis Heart Murmur Possible Cirrhosis second to alcohol abuse and hx hepatitis C Hypomagnesemia Fibromyalgia/peripheral neuropathy: present on admission; ongoing Anxiety Diastolic heart failure Procedures XRay, CTs & MRIs Chest X-ray IMPRESSION: No acute cardiopulmonary disease process. Dictated by: Ingrid Priest MD, PhD on 11/03/2016 at 16:34 Cardiac Echo Impression Interpretation Summary The left ventricle is normal in size. There is mild concentric left ventricular hypertrophy. Proximal septal thickening is noted. The echo findings are consistent with mild dynamic left ventricular outflow tract obstruction (Likely cause of flow murmur). The left ventricle is hyperdynamic. Left ventricular ejection fraction is estimated to be 70 +/- 5%. The right ventricle is grossly normal size. The right ventricular systolic function is normal. No significant valvular pathology seen. Read by: Jett Nichols on 11/05/2016 08:58 Invasive Procedures EGD on 11/05/2016: IMPRESSION: Ulcerated mucosa with visible vessel just below the gastroesophageal junction at 37 cm. The area was treated with a combination of epinephrine and hemoclip placement. RECOMMENDATION: 1. Continue n.p.o. 2. Continue PPI drip. 3. Discontinue octreotide drip. 4. Continue to follow H and H closely. Should the patient have any active bleeding, please contact me directly. Performed by Nuzhat Choi [facility] RUQ Ultrasound #1. Vascular abnormality is not appreciated in this patient with an enlarged liver and echo appearance consistent with fatty infiltration. No splenic enlargement is seen either. Dictated by: Virgilio Calzada M.D. on 11/03/2016 at 17:32 Brief History 50 year old female with history of alcohol abuse and Hepatitis C reported cured , and hx of GI bleed second to alcohol abuse with PUD presented to the emergency department due to acute onset of hematemesis. Pt states that she awoke nauseated that morning and began vomiting blood (two episodes). On admit she had light headedness and hematochezia associated with these episodes. On admit she admitted to drinking 4 glasses of wine daily and using Aleve twice a day for the last 3 days. Her last GI note in [facility] was from 2007 and prior to her treatment for HepC. Hospital Course 50 year old female with history of alcohol abuse and currently on NSAIDs presented to emergency department with hematemesis. She was placed on a PPI drip and had a endoscopy which showed ulcerated mucosa with visible vessel just below the gastroesophageal junction. Hemoclip was placed. On discharge patient was in stable condition. Her H&H stabilized. She was discharged on protonix 40mg BID. She was also started on metoprolol 12.5 mg due to echo that showed diastolic heart failure (echo included above). For Full Hospital course please see below: Acute blood loss anemia second to presumed PUD with macrocytosis: present on admission, stable: -3 episodes of delfino hematemesis and questionable hematochezia reported on admit. -Discharge hemoglobin 9.3 and hematocrit 27. These are stable. Recommend repeat CBC 5-7 days after discharge. -Protonix 40mg BID PO as outpatient. -Followup with GI in 4 weeks with repeat EGD planned for 6 weeks. Heart Murmur, ongoing: -Patient was found to have grade 3/6 systolic murmur -Echo showed diastolic heart failure. Please review echo above. -She was started on metoprolol tartrate at discharge. Possible Cirrhosis second to alcohol abuse and hx hepatitis C; present on admission; ongoing -Patient admitted to drinking 4 glasses of wine per night. -On admit: MELD: 11 ; Discriminate function: 7.6 -US RUQ showed enlarged liver and echo appearance consistent with fatty infiltration. Patient will need repeat imaging in six months per gastroenterology. Hypomagnesemia; present on admission; currently stable -Stable during hospital stay. Fibromyalgia/peripheral neuropathy: present on admission; ongoing - Hold cyclobenzaprine, pramipexole - Patient stated that she takes Oxycodone 20mg BID. Search of prescription monitoring service showed no such prescription issued in [facility]. Advised patient to speak to primary care provider about continuing this medication. -Extensive counseling in hospital about appropriate exercises for fibromyalgia such as Pilates -Patient instructed to use Arnicare gel for pain relief Anxiety: present on exam; stable -Patient to continue home anxiolytics. Time spent on day of discharge: >35 minutes. Exam Vital Signs (Last) Date Time Temp Pulse Resp B/P Pulse Ox O2 Delivery O2 Flow Rate FiO2 11/05/16 10:33 83 11/05/16 07:21 37.2 17 133/66 99 Room Air Exam Gen: Resting comfortably Cardio: RRR; 3/6 systolic murmur; no rubs or gallops Resp: CTA bilaterally Abd: Non-tender, non-distended, soft, positive bowel sounds Ext: Mild non-pitting edema, strength intact throughout Neuro: grossly intact psych: appropriate mood and affect Test 11/03/16 15:24 11/03/16 19:15 11/03/16 20:12 11/04/16 02:36 Prothrombin Time 13.8sec (8.1-12.5) Prothromb Time International Ratio 1.28ratio Lipase 17U/L (13-60) Hold Wang Top Tube Received (Received) Alcohols < 10mg/dL (0-10) Hepatitis A IgM Antibody Negative (Negative) Hepatitis B Surface Antigen Negative (Negative) Hepatitis B Core IgM Antibody Negative (Negative) Hepatitis C Antibody >11.0s/co ratio Hepatitis C Antibody Comment Comment (.) Hepatitis C Comment . Urine Color Yellow (YELLOW) Urine Appearance Hazy (CLEAR,HAZY) Urine pH 7.5 (5.0-8.0) Urine Specific [place] 1.010 (1.003-1.035) Urine Protein Negativemg/dL (NEG,TRACE) Urine Glucose (UA) Negativemg/dL (NEGATIVE) Urine Ketones Tracemg/dL (NEGATIVE) Urine Occult Blood Trace (NEGATIVE) Urine Nitrite Negative (NEGATIVE) Urine Bilirubin Negative (NEGATIVE) Urine Urobilinogen Normalmg/dL (NORMAL) Urine Leukocyte Esterase Large (NEGATIVE) Urine RBC 3-10/hpf (0-2) Urine WBC 11-50/hpf (0-5) Urine Epithelial Cells Many/hpf (NONE-MOD) Urine Crystals None seen (NONE SEEN) Urine Bacteria Many/hpf (NONE-FEW) Urine Hyaline Casts None/lpf (NONE) Urine Granular Casts None seen (NONE SEEN) Urine Waxy Casts None seen (NONE SEEN) Urine Red Blood Cell Casts None seen (NONE SEEN) Urine White Blood Cell Casts None seen (NONE SEEN) Urine Mucus None seen (None Seen) Urine Trichomonas None seen (NONE SEEN) Urine Yeast None (NONE SEEN) Urinalysis Comment None Urine Culture Reflexed Indicated White Blood Count 5.6th/mm3 (3.8-10.1) Red Blood Count 2.64mil/mm3 (3.90-5.20) Mean Corpuscular Volume 104.9fL (81-100) Mean Corpuscular Hemoglobin 35.6pg (27.0-35.0) Mean Corpuscular Hemoglobin Concent 33.9% (32.0-37.0) Red Cell Distribution Width 12.6% (12.3-15.4) Platelet Count 62bil/L (150-400) Neutrophils (%) (Auto) 54.5% (40-74) Lymphocytes (%) (Auto) 36.1% (14-46) Monocytes (%) (Auto) 6.0% (4-12) Eosinophils (%) (Auto) 2.8% (0-5) Basophils (%) (Auto) 0.4% (0-3) Sodium Level 145mEq/L (134-144) Potassium Level 4.0mEq/L (3.5-5.2) Chloride Level 111mEq/L (97-108) Carbon Dioxide Level 24mmol/L (18-29) Blood Urea Nitrogen 22mg/dL (6-24) Creatinine 0.65mg/dL (0.57-1.00) Estimat Glomerular Filtration Rate 139mL/min (>59) Glucose Level 121mg/dL (60-99) Calcium Level 8.1mg/dL (8.5-10.1) Phosphorus Level 2.7mg/dL (2.5-4.9) Magnesium Level 1.7mg/dL (1.6-2.6) Total Bilirubin 1.2mg/dL (0.0-1.2) Aspartate Amino Transf (AST/SGOT) 59U/L (0-50) Alanine Aminotransferase (ALT/SGPT) 31U/L (0-32) Alkaline Phosphatase 102U/L (25-150) Total Protein 5.8g/dL (6.4-8.4) Albumin 2.8g/dL (3.4-5.0) Test 11/05/16 08:42 Hemoglobin 9.3g/dL (12.0-15.6) Hematocrit 27.0% (35.0-46.0) Discharge Medications Discharge Medications Calcium Carbonate (Calcium) 600 Mg Tablet 600 MG PO DAILY (Reported) Cholecalciferol (Vitamin D3) (Vitamin D3) 1,000 Unit Tab.chew 1,000 UNIT PO DAILY (Reported) Cyanocobalamin (Vitamin B12) 500 Mcg Tablet 1,000 MCG PO DAILY (Reported) Furosemide (Furosemide) 20 Mg Tab 20 MG PO DAILY (Reported) Magnesium Oxide (Magnesium) 250 Mg Tablet 250 MG PO DAILY (Reported) Metoprolol Tartrate (Metoprolol Tartrate) 25 Mg Tablet 12.5 MG PO BID Prescribed by: DAWOOD PHIPPS DO Multivitamin (Multivitamins) 1 Each Capsule 1 EACH PO DAILY (Reported) Pantoprazole DR (Protonix) 40 Mg Tablet 40 MG PO BID Prescribed by: DAWOOD PHIPPS DO Pramipexole Dihydrochloride (Pramipexole Dihydrochloride) 0.25 Mg Tablet 0.25- 0.5 MG PO HS (Reported) Zolpidem (Zolpidem) 5 Mg Tablet 5 MG PO HS (Reported) As needed Alprazolam (Alprazolam) 0.5 Mg Tablet 0.5 MG PO Q8-12hrs PRN PRN For Anxiety or Agitation (Reported) Cyclobenzaprine (Cyclobenzaprine) 5 Mg Tablet 5 MG PO DAILY PRN PRN Spasm ( Reported) Followup Plan Disposition: Patient is being discharged home in stable condition Follow-up Provider: Erica Duggan Follow-up with PCP in: 1 week (If an appointment has not been made please call to schedule and appointment) Provider: Rodolfo Lobato MD Follow-up in: 4 weeks (If an appointment has not been made please call to schedule and appointment) Time spent Greater than 35 minutes Attending Statement The patient was seen and examined together with Dr. Phipps on 11/05/16 and I have added additional information to the note above. copies to: Erica Duggan; Rodolfo Lobato MD, Christopher DO Nov 05, 2016 13:22 Alyssa Adams DO Nov 05, 2016 15:34
--- NOTE | 2016-11-05 15:27 | NUR ---
Discharge, Multidisciplinary Communication 0720 - Called Pharmacy as her Lasix and Vitamin B12 medications were not in the [facility]. They said they would tube them up. They came and were given 0838 - Spoke to Dr. Phipps as the pt was saying she was supposed to have her diet advanced, but an advanced diet had not been ordered. He said that the plan was to advance her diet and to go ahead and order breakfast while he consulted with Dr. Adams. Her breakfast came and she tolerated it well. 0930 - Discussed her care with Dr. Adams and the rest of the multidisciplinary care team during morning rounds. Dr. Adams confirmed it was okay for her to have a soft diet and that she would likely discharge after her H/H lab results came back. 1115 - Spoke to Dr. Phipps about her metoprolol as it was newly ordered. He said it was ordered for her diastolic heart failure. The reasoning was explained to her and the medication was administered. 1355 - Was going over her discharge instructions with her and she had a couple of questions/requests. She wondered if her prescriptions could be sent to the [facility] instead of her regular pharmacy as they were closing about 1400 today. She also wondered what she was going to do for leg pain since in the instructions her Oxycodone was to be discontinued. Spoke to Dr. Phipps about this and he said he would fax the prescriptions to [facility] and that if she needed something like Oxycodone for pain she would need to follow-up with her PCP. Explained this to her. 1405 - She discharged after discontinuing her IV and telemetry intact. Her right hand IV site bled through the first bandage and so it was replaced, she was given a few extra bandages to take with her, and was instructed to hold pressure over the site for a few minutes. Discussed and gave her the discharge paperwork (instructions, care notes). She took all her belongings with her and her came to drive her home. She was escorted by the ASSISTANT ANALYST [facility]. She thanked staff for their care. Dr. Phipps came by and said he would fax the prescriptions to the pharmacy.
== END 2016-11-05 14:08 | disposition home or self-care (01) | DRG 378 ==
LOC: SED 14:31 → PCC 16:52
PROVIDERS: ADMIT Internal Medicine; ATTEND Internal Medicine
PROC: 0W3P8ZZ Control Bleeding in Gastrointestinal Tract, Via Natural or Artificial Opening Endoscopic (ICD-10-PCS; principal; 2016-11-03 17:30)
DX: K25.4 Chronic or unspecified gastric ulcer with hemorrhage (principal); D62 Acute posthemorrhagic anemia; I50.30 Unspecified diastolic (congestive) heart failure; K92.0 Hematemesis; F17.210 Nicotine dependence, cigarettes, uncomplicated; E83.42 Hypomagnesemia; M79.7 Fibromyalgia; G62.9 Polyneuropathy, unspecified; F41.9 Anxiety disorder, unspecified; B18.2 Chronic viral hepatitis C; K70.10 Alcoholic hepatitis without ascites; F10.10 Alcohol abuse, uncomplicated; D69.6 Thrombocytopenia, unspecified; R01.1 Cardiac murmur, unspecified

== ENCOUNTER → 2017-01-13 | Day surgery (SDC) | payer OTHER ==
[~2017-01-13] VITALS: Ht 165.1 cm; Wt 89.0 kg
[~2017-01-13] MED LIST changes: +0.9% Sodium Chloride 1,000 ML IV SCH; +ALPR0.5T8 PO; +CALC600T12 PO; +CELE-67 PO; +CHOL10008 PO; +CYAN500 PO; +CYCL5TAB PO; +ESTR1TAB24 PO; +FUR20 PO; -Ketamine 10 mg/mL 20 mL Inj ONE; +MAGN250T29 PO; +METO25TA6 PO; +MULT1CAP33 PO; +OXYC1TAB24 PO; +PANT40TA2 PO; +PRAM0.256 PO; -Propofol 10,000 mCg/mL 20 mL Inj ONE; +Sodium Chloride LOK Flush 10 mL Syringe IV PRN; +ZOLP5TAB6 PO; +fentaNYL-PF 50 mCg/mL 2 mL Inj IVPUSH PRN
[2017-01-13 07:38] VITALS: BP 117/67; PULSE 68; RESP 14; O2SAT 95
[2017-01-13 08:16] VITALS: BP 116/63; PULSE 67; RESP 16; O2SAT 98
[2017-01-13 08:25] VITALS: BP 117/65; PULSE 72; RESP 16; O2SAT 100
[2017-01-13 08:33] VITALS: BP 134/71; PULSE 66; RESP 16; O2SAT 98
--- NOTE | 2017-01-13 08:34 | ENDO ---
[address] [id number] ENDOSCOPY PROCEDURE PATIENT: KEVIN PHILLIPS : 1965 MR#: [id number] ADMIT: 01/13/2017 JOB ID: [id number] DATE: 01/13/2017 TYPE OF OPERATION: Esophagogastroduodenoscopy. PREOPERATIVE DIAGNOSIS(ES): History of esophageal ulcer. POSTOPERATIVE DIAGNOSIS(ES): 1. Mild nonerosive gastritis. 2. Completely healed esophageal ulcer. ANESTHESIA: 1. Fentanyl 150 mcg. 2. Versed 7 mg IV administered. COMPLICATION: None. BLOOD LOSS: Minimal. DESCRIPTION OF PROCEDURE: After the risks and benefits were explained to the patient, informed consent was obtained. After anesthesia administered, upper endoscope was then inserted into the esophagus, stomach, second portion of duodenum. Mucosa carefully examined. After procedure was done, the scope withdrawn and procedure terminated. FINDINGS: Upon inspection of the esophagus, the esophagus appeared normal without masses, ulcers or lesions. The previous esophageal ulcer was completely healed. Z-line located 40 cm from the incisors. Upon entering the stomach, there was mild nonerosive gastritis that was seen. Retroflexion was normal. No masses or ulcers were seen. Duodenal bulb, first and second portion were normal. IMPRESSIONS: 1. Completely healed esophageal ulcer. 2. Mild nonerosive gastritis. RECOMMENDATIONS: 1. Stop Carafate. 2. Continue Protonix. 3. Followup in GI clinic as needed.
== END | disposition home or self-care (01) ==
LOC: END 00:09
PROVIDERS: ATTEND Internal Medicine Gastroenterology
DX: K29.70 Gastritis, unspecified, without bleeding (principal); M79.7 Fibromyalgia; Z86.19 Personal history of other infectious and parasitic diseases; Z79.890 Hormone replacement therapy
CPT/HCPCS: 43235; G0500; J2250; J3010; J7030